=== PATIENT | female | born 1995 | race Caucasian/White ===

== ENCOUNTER 2017-05-30 22:39 | Emergency (ER) | payer OTHER ==
[2017-05-30 22:44] VITALS: BP 120/70; BMI 26.7
[2017-05-30 23:21] LABS: BILIRUBIN,URINE NEGATIVE (NEGATIVE); BLOOD/HEMOGLOBIN,URINE 2+ (NEGATIVE); GLUCOSE, URINE 1+ (NEGATIVE); KETONES,URINE NEGATIVE (NEGATIVE); LEUKOCYTE ESTERASE ,URINE NEGATIVE (NEGATIVE); NITRITES,URINE NEGATIVE (NEGATIVE); PROTEIN,URINE 1+ (NEGATIVE); UROBILINOGEN,URINE NORMAL (NORMAL)
[2017-05-30 23:28] LABS: APPEARANCE,URINE CLEAR (CLEAR); BACTERIA,URINE 1+ /HPF (NEGATIVE); COLOR,URINE YELLOW (YELLOW); SQUAMOUS EPITHELIAL CELL,UR MODERATE /HPF (NEGATIVE)
--- NOTE | 2017-05-30 23:44 | DR.GENAD ---
HPI - Complaint/Symptoms Chief Complaint Doctors Comments: Patient states that she lifted an eighty pound container the other day. Chief Complaint:: PT STATES THAT WHEN SHE WENT TO THE BATHROOM SHE PASSED SOME CLOTS AND HAD BLOOD ON TISSUE. 21 WEEKS OB. 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[employer] Surgery - Family History History of Family Medical Conditions: Yes Family Medical History: Cancer, Hypertension - infectious screening Have you traveled outside the country in the last 6 months?: No ROS - Review of Systems Eyes: No Symptoms Reported ENTM: No Symptoms Reported Respiratoy: No Symptoms Reported Cardiovascular: No Symptoms Reported Gastrointestinal/Abdominal: No Symptoms Reported Genitourinary: No Symptoms Reported Neurological: No Symptoms Reported Musculoskeletal: No Symptoms Reported Integumentary: No Symptoms Reported Hematologic/Lymphatic: No Symptoms Reported Endocrine: No Symptoms Reported Psychiatric: No Symptoms Reported All Other Systems: Reviewed and Negative PE - Vital Signs Vitals: Temperature 98.2 F Pulse Rate 79 Respiratory Rate 18 Blood Pressure 120/70 O2 Sat by Pulse Oximetry 100 - General Limitations: No Limitations General Appearance: Alert, In No Apparent Distress - Head Head Exam: Normal Inspection, Atraumatic - ENT ENT Exam: Normal Exam, Normal Oropharynx External Ear Exam: Normal External Inspection TM/Canal Exam: Bilateral Normal Nose Exam: Normal Nose Exam Mouth Exam: Normal Inspection Throat Exam: Normal Inspection - Neck Neck Exam: Normal Inspection - Chest Chest Inspection: Normal Inspection - Respiratory Respiratory Exam: Normal Lung Sounds Bilat Respiratory Exam: Bilateral Clear to Auscultation - Cardiovascular Cardiovascular Exam: Regular Rate, Normal Rhythm - Abdominal Exam Abdominal Exam: Normal Inspection, Normal Bowel Sounds, Soft Abdominal Tenderness: negative: RUQ, RLQ, LUQ, LLQ, Epigastrium, Suprapubic, Diffuse, Mild, Moderate, Severe, Other - Extremities Extremities Exam: Normal Inspection, Full ROM - Back Back Exam: Normal Inspection, Full ROM - Neurologic Neurological Exam: Alert, Oriented X3, CN II-XII Intact - Psychiatric Psychiatric Exam: Normal Affect - Skin Skin Exam: Warm, Dry, Intact Course - Reevaluation 1st: Improved ROR - Labs Reviewed Laboratory: HCG, Quant 80463 mIU/mL (0-6) H 05/30/17 23:12 Specimen Type Clean catch urine 05/30/17 23:12 Urine Color Yellow (YELLOW) 05/30/17 23:12 Urine Appearance Clear (CLEAR) 05/30/17 23:12 Urine pH 6.0 (5.0 - 8.0) 05/30/17 23:12 Ur Specific Webster 1.020 (1.000-1.030) 05/30/17 23:12 Urine Protein 1+ (NEGATIVE) 05/30/17 23:12 Urine Glucose (UA) 1+ (NEGATIVE) 05/30/17 23:12 Urine Ketones Negative (NEGATIVE) 05/30/17 23:12 Urine Occult Blood 2+ (NEGATIVE) 05/30/17 23:12 Urine Nitrite Negative (NEGATIVE) 05/30/17 23:12 Urine Bilirubin Negative (NEGATIVE) 05/30/17 23:12 Urine Urobilinogen Normal (NORMAL) 05/30/17 23:12 Ur Leukocyte Esterase Negative (NEGATIVE) 05/30/17 23:12 Urine RBC 5-7 /HPF (NEGATIVE) 05/30/17 23:12 Urine WBC 0-1 /HPF (NEGATIVE) 05/30/17 23:12 Ur Squamous Epith Cells Moderate /HPF (NEGATIVE) 05/30/17 23:12 Urine Bacteria 1+ /HPF (NEGATIVE) 05/30/17 23:12 Ur Culture Indicated? No/not indicated 05/30/17 23:12 - XRAY XRAY Interpreted by: Radiologist (OB ultrasound greater than 14 Weeks: A viable single intrauterine with an average ultrasound age of 22 weeks, 2 days. No placental or retroplacental hematoma identified.) - Diagnosis Discharge Problem: and infectious disease in second trimester - Discharge Plan Condition: Stable - Follow ups/Referrals Follow ups/Referrals: CHERIE HILL [Primary Care Provider] - 3 days - Instructions Instructions: Vaginal Bleeding During , Second Trimester Additional Instructions: NO HEAVY LIFTING. REST, INCREASE FLUID INTAKE TO AT LEAST A GALLON A DAY
--- NOTE | 2017-05-31 01:42 | US ---
OB ultrasound greater than 14 weeks Indication: vaginal bleeding Comparison: None available Technique: Multiple grayscale and color flow Doppler images of the pelvis were obtained with focused evaluation of the fetus. Findings: A viable single intrauterine is identified with heart tones of 142 beats per minute. A vertex presentation is observed with anterior and fundal placenta. No placental or retroplacental h emorrhage. ATTILA is grossly normal. The limited evaluation of the anatomy demonstrates normal appearance of the bladder, kidneys, e xtremities, four-chamber heart and maternal cervix. Value Estimated Gestational Age BPD 5.32 cm 22 weeks, 1 day HC 19.55 cm 21 weeks, 5 days AC 17.15 cm 22 weeks, 1 day FL 3.97 cm 22 weeks, 6 days IMPRESSION: A viable single intrauterine with an average ultrasound age of 22 weeks, 2 days. No placental or retroplacental hematoma identified. Reported By:
== END 2017-05-31 01:52 | disposition home or self-care (01) ==
LOC: ER 22:50
DX: B99.9 Unspecified infectious disease (principal); Z3A.22 22 weeks gestation of pregnancy
CPT/HCPCS: 36415; 76815; 81001; 84702; 99283; 99284